=== PATIENT | female | born 1935 | race Caucasian/White ===

== ENCOUNTER 2018-10-16 02:39 | Inpatient (IN) | payer MEDICARE, OTHER ==
[~2018-10-16] VITALS: Ht 152.4 cm; Wt 50.0 kg
[~2018-10-16 02:39] MED LIST: ACET325T14 PO; ACID1TAB3 PO; CALC-471 PO; CEPH-368 PO; CYCL-259 PO; DABI75CA3 PO; DIGO125T PO; FLUT1DIS3 INH; GABA-826 PO; HYDR-3237 PO; IPRA3AMP30 NEB; LEVO750T6 PO; MAGN2400 PO; METO25TA35 PO; METO50TA82 PO; METO5AMP PO; PANT40TA5 PO; POLY17PO5 PO; RIVA15TA PO; SENN8.6T98 PO; SERT50TA28 PO; TIOT18CA INH; TRAM50TA2 PO
[2018-10-16] MEDS ORDERED: ALBUTEROL/IPRATROPIUM 2.5MG/0.5MG, 3 ML ONE ×2 (02:51→16:37)
[2018-10-16] MEDS ORDERED: SODIUM CHLORIDE FLUSH 10ML SYR IVF ONE (03:00)
[2018-10-16] MEDS ORDERED: ALBUTEROL/IPRATROPIUM 2.5MG/0.5MG, 3 ML NPPB ONE (03:00)
[2018-10-16 03:08] LABS: BASOPHILS # (AUTO) 0.16 x10^3/uL (0-0.1); BASOPHILS % (AUTO) 3 % (0-1); EOSINOPHILS # (AUTO) 0.25 x10^3/uL (0-0.4); EOSINOPHILS % (AUTO) 4 % (1-7); LYMPHOCYTES # (AUTO) 1.46 x10^3/uL (1-3.4); LYMPHOCYTES % (AUTO) 23 % (22-44); MD NO; MEAN CORPUSCULAR HEMOGLOBIN 29.1 pg (27.0-34.8); MEAN CORPUSCULAR HGB CONC 33.3 g/dL (32.4-35.8); MEAN CORPUSCULAR VOLUME 87.4 fL (80-100); MEAN PLATELET VOLUME 8.7 fL (7.4-10.4); MONOCYTES # (AUTO) 0.66 x10^3/uL (0.2-0.8); MONOCYTES % (AUTO) 10 % (2-9); NEUTROPHILS # (AUTO) 3.86 x10^3/uL (1.8-6.8); NEUTROPHILS % (AUTO) 60 % (42-75); PLATELET COUNT 214 x10^3/uL (130-400); RED BLOOD COUNT 4.55 x10^6/uL (3.82-5.3); RED CELL DISTRIBUTION WIDTH 15.5 % (9.6-15.2)
--- NOTE | 2018-10-16 03:20 | NUR ---
PT IN HOSPITAL GOWN. PT PLACED ON VITALS MONITORS. WILL CONTINUE TO MONITOR. BILAT BEDRAILS UP.
[2018-10-16 03:21] LABS: ALBUMIN 3.7 g/dL (3.4-5.0); CALCIUM 8.6 mg/dL (8.5-10.1); CREATININE 0.86 mg/dL (0.55-1.02)
[2018-10-16 03:25] LABS: TROPONIN I < 0.015 ng/mL (0.000-0.045)
[2018-10-16 03:31] LABS: ANION GAP 5 mmol/L (5-15); CHLORIDE 108 mmol/L (98-107)
[2018-10-16] MEDS ORDERED: DONEPEZIL PO (04:17)
[2018-10-16] MEDS ORDERED: ELIQUIS PO (04:17)
[2018-10-16] MEDS ORDERED: METOPROLOL PO (04:17)
[2018-10-16] MEDS ORDERED: UTIBRON (04:18)
[2018-10-16] MEDS ORDERED: ACETAMINOPHEN 325 MG TABLET PO PRN (04:30)
[2018-10-16] MEDS ORDERED: HEPARIN 5,000 UNITS/ML, 1ML SQ SCH (04:30)
[2018-10-16] MEDS ORDERED: ENALAPRILAT 1.25 MG/ML, 2ML IVPush PRN (04:30)
--- NOTE | 2018-10-16 04:50 | NUR ---
PT TO BE ADMITTED. MED REC UPDATED PER PT HOME LIST WHICH DOES NOT INCLUDE DOSES. IV STARTED. HOSPITALIST IN TO SEE PT.
--- NOTE | 2018-10-16 05:09 | NUR ---
PT DAUGHTER SHILPA MARI -
--- NOTE | 2018-10-16 05:27 | NUR ---
REPORT TO REAGAN BARNES FOR [phone]
[2018-10-16 05:58] VITALS: BP 131/74
[2018-10-16 07:08] VITALS: BP 132/74
[2018-10-16] MEDS ORDERED: METOPROLOL TARTRATE 50 MG TABLET PO ONE (09:00)
[2018-10-16] MEDS: APIXABAN 5 MG TABLET PO SCH ×2 (09:22→20:48)
[2018-10-16] MEDS: GABAPENTIN 100 MG CAPSULE PO SCH ×3 (09:23→20:48)
[2018-10-16] MEDS: SERTRALINE 50MG TABLET PO SCH (09:23)
[2018-10-16] MEDS ORDERED: FLUT100B IH (11:41)
[2018-10-16 12:30] VITALS: BP 139/69
[2018-10-16] MEDS ORDERED: ALBUTEROL/IPRATROPIUM 2.5MG/0.5MG, 3 ML NPPB PRN (17:00)
[2018-10-16] MEDS: methylPREDNISolone SOD SUCC 125 MG/2 ML IVPush SCH (18:28)
[2018-10-16] MEDS: GUAIFENESIN 200 MG TABLET PO SCH ×2 (18:28→20:48)
[2018-10-16 20:08] VITALS: BP 110/73
[2018-10-16] MEDS: DONEPEZIL 5 MG TABLET PO SCH (20:48)
[2018-10-16] MEDS ORDERED: BUDESONIDE 0.5 MG/2 ML INHA NPPB SCH (21:00)
[2018-10-17] MEDS: ALBUTEROL/IPRATROPIUM 2.5MG/0.5MG, 3 ML NPPB SCH ×3 (00:20→21:00)
[2018-10-17 01:49] VITALS: BP 130/68
[2018-10-17] MEDS: methylPREDNISolone SOD SUCC 125 MG/2 ML IVPush SCH (02:15)
[2018-10-17] MEDS: METOPROLOL SUCCINATE 50 MG TAB.ER.24H PO SCH (05:04)
[2018-10-17] MEDS: GUAIFENESIN 200 MG TABLET PO SCH ×4 (05:04→21:17)
[2018-10-17 05:25] LABS: CALCIUM 9.1 mg/dL (8.5-10.1); CHLORIDE 107 mmol/L (98-107)
[2018-10-17 05:39] LABS: ANION GAP 7 mmol/L (5-15); CREATININE 0.59 mg/dL (0.55-1.02); THYROID STIMULATING HORMONE 0.909 mIU/L (0.358-3.740)
[2018-10-17 07:46] VITALS: BP 125/72
[2018-10-17] MEDS: SERTRALINE 50MG TABLET PO SCH (08:15)
[2018-10-17] MEDS: APIXABAN 5 MG TABLET PO SCH ×2 (08:15→21:17)
[2018-10-17] MEDS: GABAPENTIN 100 MG CAPSULE PO SCH ×3 (08:15→21:17)
[2018-10-17] MEDS ORDERED: LORazepam 2 MG/ML, 1ML ONE (08:40)
[2018-10-17] MEDS ORDERED: DONEPEZIL 10 MG TABLET PO SCH (09:00)
[2018-10-17] MEDS ORDERED: LORazepam 2 MG/ML, 1ML IVPush ONE (09:00)
[2018-10-17] MEDS ORDERED: QUETIAPINE 25MG TABLET PO PRN (10:30)
[2018-10-17] MEDS ORDERED: INSTRUCTION SEE COMMENTS XX PRN (10:30)
[2018-10-17] MEDS ORDERED: PHARMACY INSTRUCTION MC PRN (10:30)
[2018-10-17 16:24] VITALS: BP 103/61
[2018-10-17 20:50] VITALS: BP 126/75
[2018-10-17] MEDS: DONEPEZIL 5 MG TABLET PO SCH (21:17)
[2018-10-17] MEDS: MELATONIN 3 MG TABLET PO SCH (21:17)
[2018-10-18 01:31] LABS: MICROSCOPIC NOT IND
[2018-10-18 01:34] LABS: CULTURE INDICATED? NO
[2018-10-18] MEDS: METOPROLOL SUCCINATE 50 MG TAB.ER.24H PO SCH (06:17)
[2018-10-18] MEDS: GUAIFENESIN 200 MG TABLET PO SCH ×4 (06:17→21:22)
[2018-10-18 07:11] LABS: MEAN CORPUSCULAR HEMOGLOBIN 29.1 pg (27.0-34.8); MEAN CORPUSCULAR HGB CONC 33.4 g/dL (32.4-35.8); MEAN CORPUSCULAR VOLUME 86.9 fL (80-100); MEAN PLATELET VOLUME 9.2 fL (7.4-10.4); PLATELET COUNT 235 x10^3/uL (130-400); RED BLOOD COUNT 4.57 x10^6/uL (3.82-5.3); RED CELL DISTRIBUTION WIDTH 15.6 % (9.6-15.2)
[2018-10-18 07:14] LABS: ANION GAP 4 mmol/L (5-15); CALCIUM 8.7 mg/dL (8.5-10.1); CHLORIDE 109 mmol/L (98-107); CREATININE 0.67 mg/dL (0.55-1.02)
[2018-10-18 07:20] VITALS: BP 128/72
[2018-10-18 07:23] LABS: BASOPHILS % (AUTO) 0 % (0-1); EOSINOPHILS # (AUTO) 0.01 x10^3/uL (0-0.4); EOSINOPHILS % (AUTO) 0 % (1-7); LYMPHOCYTES # (AUTO) 0.56 x10^3/uL (1-3.4); LYMPHOCYTES % (AUTO) 5 % (22-44); MD SCAN; MONOCYTES # (AUTO) 0.44 x10^3/uL (0.2-0.8); MONOCYTES % (AUTO) 4 % (2-9); NEUTROPHILS # (AUTO) 10.22 x10^3/uL (1.8-6.8); NEUTROPHILS % (AUTO) 91 % (42-75)
[2018-10-18] MEDS: ALBUTEROL/IPRATROPIUM 2.5MG/0.5MG, 3 ML NPPB SCH ×2 (10:15→21:00)
[2018-10-18] MEDS: APIXABAN 5 MG TABLET PO SCH ×2 (10:47→21:22)
[2018-10-18] MEDS: GABAPENTIN 100 MG CAPSULE PO SCH ×3 (10:47→21:22)
[2018-10-18] MEDS: SERTRALINE 50MG TABLET PO SCH (10:47)
[2018-10-18 19:33] VITALS: BP 109/72
[2018-10-18] MEDS: MELATONIN 3 MG TABLET PO SCH (21:22)
[2018-10-18] MEDS: DONEPEZIL 5 MG TABLET PO SCH (21:22)
[2018-10-19 05:47] VITALS: BP 129/71
[2018-10-19] MEDS: GUAIFENESIN 200 MG TABLET PO SCH ×4 (05:48→19:58)
[2018-10-19] MEDS: METOPROLOL SUCCINATE 50 MG TAB.ER.24H PO SCH (05:48)
[2018-10-19] MEDS: ALBUTEROL/IPRATROPIUM 2.5MG/0.5MG, 3 ML NPPB SCH ×2 (08:36→20:15)
[2018-10-19] MEDS: GABAPENTIN 100 MG CAPSULE PO SCH ×3 (08:50→19:59)
[2018-10-19] MEDS: SERTRALINE 50MG TABLET PO SCH (08:50)
[2018-10-19] MEDS: APIXABAN 5 MG TABLET PO SCH ×2 (08:50→19:59)
[2018-10-19 13:24] VITALS: BP 114/75
[2018-10-19 19:33] VITALS: BP 152/83
[2018-10-19] MEDS: MELATONIN 3 MG TABLET PO SCH (19:59)
[2018-10-19] MEDS: DONEPEZIL 5 MG TABLET PO SCH (19:59)
[2018-10-20 01:27] VITALS: BP 142/82
[2018-10-20] MEDS: GUAIFENESIN 200 MG TABLET PO SCH ×2 (05:22→10:19)
[2018-10-20] MEDS: METOPROLOL SUCCINATE 50 MG TAB.ER.24H PO SCH (05:22)
[2018-10-20] MEDS: ALBUTEROL/IPRATROPIUM 2.5MG/0.5MG, 3 ML NPPB SCH (05:28)
[2018-10-20 08:20] VITALS: BP 114/65
[2018-10-20] MEDS ORDERED: BUDESONIDE 0.5 MG/2 ML INHA INH SCH (09:30)
[2018-10-20] MEDS: SERTRALINE 50MG TABLET PO SCH (10:19)
[2018-10-20] MEDS: GABAPENTIN 100 MG CAPSULE PO SCH (10:20)
[2018-10-20] MEDS: APIXABAN 5 MG TABLET PO SCH (10:21)
[2018-10-20] MEDS ORDERED: GUAI200T3 PO (13:03)
[2018-10-20] MEDS ORDERED: PRED20TA PO (13:03)
== END 2018-10-20 13:35 | disposition home health service (06) | DRG 70 ==
LOC: ED 03:00 → EDIP 03:58 → 5SO 05:51 → 4EST 10-17 19:05
PROVIDERS: ADMIT Family Medicine; ATTEND Family Medicine
DX: G93.41 Metabolic encephalopathy (principal); J96.20 Acute and chronic respiratory failure, unspecified whether with hypoxia or hypercapnia; J44.1 Chronic obstructive pulmonary disease with (acute) exacerbation; D68.69 Other thrombophilia; I50.32 Chronic diastolic (congestive) heart failure; J96.10 Chronic respiratory failure, unspecified whether with hypoxia or hypercapnia; I48.91 Unspecified atrial fibrillation; E78.5 Hyperlipidemia, unspecified; I11.0 Hypertensive heart disease with heart failure; I48.2 Chronic atrial fibrillation; M19.90 Unspecified osteoarthritis, unspecified site; Z79.01 Long term (current) use of anticoagulants; Z86.73 Personal history of transient ischemic attack (TIA), and cerebral infarction without residual deficits; Z99.81 Dependence on supplemental oxygen; Z88.5 Allergy status to narcotic agent
CPT/HCPCS: 36415; 36600; 71045; 80048; 81003; 82040; 82140; 82607; 82803; 83735; 84443; 84484; 85025; 93005; 94640; 99285; G0378; J7620; 92522-GN; J2060; J2930; J7512

== ENCOUNTER 2019-01-30 10:40 | Emergency (ER) | payer MEDICARE, OTHER ==
[~2019-01-30] VITALS: Ht 149.9 cm; Wt 40.5 kg
[2019-01-30 13:50] VITALS: BP 95/61
== END 2019-01-30 15:39 | disposition home or self-care (01) ==
LOC: ED 11:50
DX: G89.11 Acute pain due to trauma (principal); M51.36 Other intervertebral disc degeneration, lumbar region; M51.34 Other intervertebral disc degeneration, thoracic region; J44.9 Chronic obstructive pulmonary disease, unspecified; I10 Essential (primary) hypertension; Z86.73 Personal history of transient ischemic attack (TIA), and cerebral infarction without residual deficits; W18.30XA Fall on same level, unspecified, initial encounter; Y93.89 Activity, other specified; Y92.009 Unspecified place in unspecified non-institutional (private) residence as the place of occurrence of the external cause; Y99.8 Other external cause status
CPT/HCPCS: 71045; 72128; 72131; 96374; 99284; J2270